=== PATIENT | male | born 1995 | race Caucasian/White ===

== ENCOUNTER 2021-01-21 14:45 | Emergency (ER) | payer OTHER, SELFPAY ==
--- NOTE | ~2021-01-21 | XR_ITS ---
EXAMINATION: XR chest 1V portable INDICATION: Shortness of breath TECHNIQUE: Portable AP chest at 1542 hours COMPARISON: None available FINDINGS: The lung volumes are low. The lungs are free of acute opacities. No pleural effusion or pne umothorax is identified. The cardiac mediastinal silhouette is normal. IMPRESSION: 1. No acute cardiopulmonary abnormality. Reviewed, dictated and finalized at location A.
[2021-01-21 14:50] VITALS: BP 127/80; PULSE 115; RESP 22; TEMP 38.2; O2SAT 98
--- NOTE | 2021-01-21 15:18 | ECG_ITS ---
Measurements Intervals [place] Rate: 110 P: 10 NH: 163 QRS: 58 QRSD: 94 T: 17 QT: 322 QTc: 436 Interpretive Statements SINUS TACHYCARDIA BORDERLINE T WAVE ABNORMALITY- INFERIOR LEADS BASELINE ARTIFACT- II, III, AVF ABNORMAL ECG Electronically Signed On 01-22-2021 9:07:17 CDT by Iain Franks D.O.
[2021-01-21 15:44] LABS: Base Excess ABG 0.2 mmol/L (0-2); HCO3 ABG 22.9 mmol/L (23-29); Oxygen Content ABG 20.9 %vol (16.0-22.0); Oxygen Saturation ABG 96.5 % (95-97); Oxyhemoglobin 95.9 % (94-100); PCO2 ABG 31.9 mmHg (35-45); PO2 ABG 78.9 mmHg (80-90); Total Hemoglobin 15.5 g/dL (12.0-18.0); pH ABG 7.47 (7.35-7.45)
[2021-01-21 15:46] LABS: Device ROOM AIR; Modified Allen's Test Pass; Site Drawn LEFT RADIAL
[2021-01-21 15:47] LABS: Basophils Absolute Auto 0.01 K/mm3 (0.00-0.10); Basophils Percent Auto 0.2 % (0.0-1.0); Eosinophils Absolute Auto 0.02 K/mm3 (0.02-0.50); Eosinophils Percent Auto 0.4 % (1.0-6.0); Hematocrit 45.2 % (40.0-54.0); Hemoglobin 14.8 g/dL (14.0-18.0); Immature Granulocyte Absolute 0.02 K/mm3 (0.00-0.00); Immature Granulocyte Percent A 0.4 % (0.0-0.0); Lymphocytes Absolute Auto 0.92 K/mm3 (1.10-4.50); Lymphocytes Percent Auto 18.6 % (18.0-42.0); Mean Corpuscular HGB Conc 32.7 g/dL (32.0-36.0); Mean Corpuscular Hemoglobin 30.3 pg (27.0-31.0); Mean Corpuscular Volume 92.4 fL (78.0-102.0); Mean Platelet Volume 11.8 fl (8.7-11.0); Monocytes Absolute Auto 0.32 K/mm3 (0.10-0.90); Monocytes Percent Auto 6.5 % (2.0-11.0); Neutrophils Absolute Auto 3.7 K/mm3 (1.7-7.2); Neutrophils Percent Auto 73.9 % (50.0-70.0); Platelet Count Result 217 K/mm3 (150-420); Red Blood Count 4.89 M/mm3 (4.70-6.10); Red Cell Distribution Width 13.9 % (11.6-14.4); White Blood Count 4.9 K/mm3 (4.8-10.8)
[2021-01-21 16:00] LABS: SARS-CoV-2 RNA PCR Positive (Negative)
[2021-01-21] MEDS: ACETAMINOPHEN 500 MG TABLET 1000 MG PO (16:00)
[2021-01-21] MEDS: ALBUTEROL SULFATE (*SP) INHALER 2 PUFF INHALATION (16:00)
[2021-01-21 16:02] LABS: Partial Thromboplastin Time 32.9 SEC (23.90-30.70); Prothrombin Time 11.1 Seconds (9.50-12.10)
[2021-01-21 16:09] LABS: Alanine Aminotransferase 76 U/L (16-63); Albumin Level 3.9 g/dL (3.4-5.0); Alkaline Phosphatase 57 U/L (46-116); Anion Gap 11 mmol/L (8-16); Aspartate Amino Transferase 49 U/L (15-37); Bilirubin,Total 0.7 mg/dL (0.00-1.00); Blood Urea Nitrogen 7 mg/dL (7-18); Calcium 8.6 mg/dL (8.5-10.1); Carbon Dioxide 26 mmol/L (21-32); Chloride 101 mmol/L (98-108); Estimated CRCL calculation 158 ml/min; Estimated Glomerular Filt Rate > 60; Glucose 112 mg/dL (70-99); Magnesium 1.5 mg/dL (1.8-2.4); NT Pro B Type Natriuretic Pept 16 pg/mL (0-125); Osmolality Calculated 285 mOsm/kg (285-295); Potassium 3.4 mmol/L (3.5-5.1); Sodium 138 mmol/L (136-145); Total Protein 7.8 g/dL (6.4-8.2)
--- NOTE | 2021-01-21 16:14 | ED.SOB ---
HPI - SOB/Dyspnea General Chief Complaint: Shortness of Breath/Dyspnea Stated Complaint: congestion,heavy chest Source: patient Mode of arrival: ambulatory Limitations: no limitations History of Present Illness HPI Narrative: this is a 25-year-old gentleman that presents with fever and shortness of breath with a nonproductive cough current temperature is 100.8? has been having a cough with fever and shortness of breath over the last 2 days with no chest pain or pressure no nausea vomiting no diarrhea constipation no abdominal pain. MD elicited complaint: shortness of breath and cough Pertinent past history: other ( Obesity) Onset (ago): day(s) Severity: mild Related Data Home Medications Medication Instructions Recorded Confirmed No Home Medications 01/21/21 01/21/21 Allergies Allergy/AdvReac Type Severity Reaction Status Date / Time No Known Allergies Allergy Verified 01/21/21 15:15 Review of Systems Review of Systems: All systems reviewed & are unremarkable except as noted in HPI and below PMFSH Past Medical History Medical History Morbid obesity Exam Const: General: no acute distress and alert Orientation/consciousness: patient oriented x3 HENMT: Head: normal to inspection Eyes: Conjunctivae: conjunctivae normal Pupils: Equal, round and reactive pupils present Resp: Effort & Inspection: normal respiratory effort Auscultation: clear to auscultation bilaterally Cardio: Rate: regular rate Rhythm: regular rhythm GI: GI Palp: Yes Soft to palpation Percussion: Yes normal to percussion Back/Spine/Pelvis: Back: no CVA tenderness Skin: General skin exam: normal color Rashes: no rashes Neuro: General: patient oriented x3 and moves all extremities Extrem: General: normal to inspection and no pedal edema Psych: Mental Status: mental status grossly normal Affect: normal affect Course Course Emergency Course: x-rays and labs reviewed with patient advised to drink plenty of fluids take medicine as prescribed and follow-up with his primary care physician within a week further evaluation and treatment Vital Signs Vital signs: Vital Signs Temperature 38.2 C H 01/21/21 14:50 Pulse Rate 115 H 01/21/21 14:50 Respiratory Rate 22 H 01/21/21 14:50 Blood Pressure 127/80 01/21/21 14:50 Pulse Oximetry 98 01/21/21 14:50 Temperature 38.2 C H 01/21/21 14:50 Pulse Rate 115 H 01/21/21 14:50 Respiratory Rate 22 H 01/21/21 14:50 Blood Pressure 127/80 01/21/21 14:50 Pulse Oximetry 98 01/21/21 14:50 MDM - SOB/Dyspnea Lab Data Result diagrams: 01/21/21 15:41 01/21/21 15:41 Labs: Lab Results 01/21/21 01/21/21 01/21/21 Range/Units 15:16 15:26 15:41 WBC 4.9 (4.8-10.8) K/mm3 RBC 4.89 (4.70-6.10) M/mm3 Hgb 14.8 (14.0-18.0) g/dL Hct 45.2 (40.0-54.0) % MCV 92.4 (78.0-102.0) fL MCH 30.3 (27.0-31.0) pg MCHC 32.7 (32.0-36.0) g/dL RDW 13.9 (11.6-14.4) % Plt Count 217 (150-420) K/mm3 MPV 11.8 H (8.7-11.0) fl Immature Gran % (Auto) 0.4 H (0.0-0.0) % Neut % (Auto) 73.9 H (50.0-70.0) % Lymph % (Auto) 18.6 (18.0-42.0) % [place] % (Auto) 6.5 (2.0-11.0) % Eos % (Auto) 0.4 L (1.0-6.0) % Baso % (Auto) 0.2 (0.0-1.0) % Lymph # (Auto) 0.92 L (1.10-4.50) K/mm3 [place] # (Auto) 0.32 (0.10-0.90) K/mm3 Eos # (Auto) 0.02 (0.02-0.50) K/mm3 Baso # (Auto) 0.01 (0.00-0.10) K/mm3 Abs Immat Gran (auto) 0.02 H (0.00-0.00) K/mm3 Absolute Neuts (auto) 3.7 (1.7-7.2) K/mm3 Absolute Nucleated RBC 0.00 (0.00-0.00) K/mm3 Nucleated RBC % 0.0 (0-0.0) % PT (9.50-12.10) Seconds INR APTT (23.90-30.70) SEC Sodium (136-145) mmol/L Potassium (3.5-5.1) mmol/L Chloride (98-108) mmol/L Carbon Dioxide (21-32) mmol/L Anion Gap (8-16) mmol/L BUN (7-18) mg/dL Creatinine
[2021-01-21 16:30] VITALS: BP 141/82; PULSE 116; RESP 16; TEMP 38.2; O2SAT 100
== END 2021-01-21 16:30 | disposition home or self-care (01) ==
PROVIDERS: Emergency Provider Emergency Medicine
DX: U07.1 COVID-19 (principal); E66.01 Morbid (severe) obesity due to excess calories
CPT/HCPCS: 36415; 36600; 71045; 80053; 82805; 83735; 83880; 85025; 85610; 85730; 87040; 93005; 99283; A9270; C9803; U0003; U0005

== ENCOUNTER 2022-01-09 09:58 | Outpatient (CLI) | payer OTHER, SELFPAY ==
[2022-01-09 10:21] LABS: Basophils Absolute Auto 0.05 K/mm3 (0.00-0.10); Basophils Percent Auto 0.5 % (0.0-1.0); Eosinophils Absolute Auto 0.23 K/mm3 (0.02-0.50); Eosinophils Percent Auto 2.5 % (1.0-6.0); Hematocrit 44.5 % (40.0-54.0); Hemoglobin 14.1 g/dL (14.0-18.0); Immature Granulocyte Absolute 0.11 K/mm3 (0.00-0.00); Immature Granulocyte Percent A 1.2 % (0.0-0.0); Lymphocytes Absolute Auto 2.38 K/mm3 (1.10-4.50); Lymphocytes Percent Auto 25.9 % (18.0-42.0); Mean Corpuscular HGB Conc 31.7 g/dL (32.0-36.0); Mean Corpuscular Hemoglobin 29.6 pg (27.0-31.0); Mean Corpuscular Volume 93.5 fL (78.0-102.0); Mean Platelet Volume 11.3 fl (8.7-11.0); Monocytes Percent Auto 5.4 % (2.0-11.0); Neutrophils Absolute Auto 5.9 K/mm3 (1.7-7.2); Neutrophils Percent Auto 64.5 % (50.0-70.0); Platelet Count Result 285 K/mm3 (150-420); Red Blood Count 4.76 M/mm3 (4.70-6.10); Red Cell Distribution Width 13.2 % (11.6-14.4); White Blood Count 9.2 K/mm3 (4.8-10.8)
[2022-01-09 10:37] LABS: Hemoglobin A1C 5.6 % (<5.7)
[2022-01-09 11:07] LABS: Alanine Aminotransferase 62 U/L (16-63); Albumin Level 3.7 g/dL (3.4-5.0); Alkaline Phosphatase 71 U/L (46-116); Anion Gap 5 mmol/L (8-16); Aspartate Amino Transferase 42 U/L (15-37); Blood Urea Nitrogen 11 mg/dL (7-18); Calcium 8.6 mg/dL (8.5-10.1); Carbon Dioxide 30 mmol/L (21-32); Chloride 102 mmol/L (98-108); Cholesterol 224 mg/dL (0-200); Estimated Glomerular Filt Rate > 60; Free T4 Free Thyroxine 1.02 ng/dL (0.76-1.46); Glucose 101 mg/dL (70-99); HDL Direct 24 mg/dL (40-60); LDL Cholesterol Calculated 169 mg/dL (<130); Osmolality Calculated 283 mOsm/kg (285-295); Sodium 137 mmol/L (136-145); Thyroid Stimulating Hormone 3.45 uIU/mL (0.36-3.74); Total Protein 7.6 g/dL (6.4-8.2); Triglycerides 154 mg/dL (0-150)
== END 2022-01-09 09:59 | disposition home or self-care (01) ==
LOC: CHSLAB 10:07
DX: Z13.29 Encounter for screening for other suspected endocrine disorder (principal); R03.0 Elevated blood-pressure reading, without diagnosis of hypertension; Z13.1 Encounter for screening for diabetes mellitus; Z13.220 Encounter for screening for lipoid disorders
CPT/HCPCS: 36415; 80053; 80061; 83036; 84439; 84443; 85025